=== PATIENT | male | born 1955 | race Caucasian/White ===

== ENCOUNTER → 2021-01-01 | Outpatient (CLI) | payer OTHER | LOC: LAB 10:22 | DX: D45 Polycythemia vera (principal); R50.9 Fever, unspecified | CPT/HCPCS: 36415; 85014 ==

== ENCOUNTER → 2021-01-04 | Outpatient (CLI) | payer OTHER | LOC: OPSV 12:26 | DX: D45 Polycythemia vera (principal); R50.9 Fever, unspecified; Z51.11 Encounter for antineoplastic chemotherapy | CPT/HCPCS: 99195 ==

== ENCOUNTER → 2021-06-08 | Outpatient (CLI) | payer OTHER | LOC: OPSV 08:00 | DX: D45 Polycythemia vera (principal); R50.9 Fever, unspecified | CPT/HCPCS: 99195 ==